=== PATIENT | female | born 1990 ===

== ENCOUNTER 2018-05-03 11:04 | Emergency (ER) | payer OTHER ==
[~2018-05-03] VITALS: Ht 162.6 cm; Wt 50.3 kg
[~2018-05-03 11:04] MED LIST: ANTIVERT25 MG
== END 2018-05-03 14:55 | disposition home or self-care (01) ==
LOC: ER 11:04
DX: O26.891 Other specified pregnancy related conditions, first trimester (principal); R10.32 Left lower quadrant pain; Z34.01 Encounter for supervision of normal first pregnancy, first trimester

== ENCOUNTER 2018-07-20 05:41 | Inpatient (IN) | payer OTHER ==
[~2018-07-20] VITALS: Ht 160 cm; Wt 126.0 kg
[2018-07-21] MEDS ORDERED: PRENATABS RX T1 EACH PO (11:25)
== END 2018-07-22 14:17 | disposition home or self-care (01) | DRG 833 ==
LOC: OBS/DEL 05:41 → LDR 07-21 09:25 → OB/GYN 07-21 13:33
PROC: 4A1HXCZ Monitoring of Products of Conception, Cardiac Rate, External Approach (ICD-10-PCS; principal; 2018-07-21)
DX: O26.892 Other specified pregnancy related conditions, second trimester (principal); R10.32 Left lower quadrant pain; Z34.02 Encounter for supervision of normal first pregnancy, second trimester

== ENCOUNTER 2018-09-12 11:12 | Outpatient (CLI) | payer OTHER ==
[~2018-09-12 11:12] MED LIST changes: +PRENATABS RX T1 EACH PO
== END 2018-09-13 14:29 | disposition home or self-care (01) ==
LOC: OBS/DEL 11:12
DX: O26.893 Other specified pregnancy related conditions, third trimester (principal); H92.03 Otalgia, bilateral; R07.89 Other chest pain; Z34.83 Encounter for supervision of other normal pregnancy, third trimester

== ENCOUNTER 2018-11-04 05:24 | Inpatient (IN) | payer OTHER ==
[~2018-11-04] VITALS: Ht 162.6 cm; Wt 64.9 kg
[2018-11-04] MEDS ORDERED: FOLIC ACID1 MG PO (09:35)
[2018-11-04] MEDS ORDERED: VALTREX1000 MG (09:37)
== END 2018-11-06 16:34 | disposition home or self-care (01) | DRG 807 ==
LOC: LDR 05:24 → OB/GYN 05:24
PROVIDERS: ADMIT Obstetrics & Gynecology Obstetrics
PROC: 10E0XZZ Delivery of Products of Conception, External Approach (ICD-10-PCS; principal; 2018-11-04)
PROC: 4A1HXCZ Monitoring of Products of Conception, Cardiac Rate, External Approach (ICD-10-PCS; 2018-11-04)
DX: O80 Encounter for full-term uncomplicated delivery (principal); Z37.0 Single live birth; Z3A.40 40 weeks gestation of pregnancy

== ENCOUNTER → 2020-07-15 | Outpatient (CLI) | payer OTHER ==
[~2020-07-15] MED LIST changes: +FOLIC ACID1 MG PO; +VALTREX1000 MG
== END | disposition home or self-care (01) ==
LOC: PRENATAL 15:30
PROVIDERS: ATTEND Obstetrics & Gynecology Maternal & Fetal Medicine
DX: O35.0XX1 Maternal care for (suspected) central nervous system malformation in fetus, fetus 1 (principal); O35.3XX1 Maternal care for (suspected) damage to fetus from viral disease in mother, fetus 1; O98.512 Other viral diseases complicating pregnancy, second trimester; Z36.89 Encounter for other specified antenatal screening; Z3A.20 20 weeks gestation of pregnancy

== ENCOUNTER 2020-11-23 16:15 | Inpatient (IN) | payer OTHER ==
[~2020-11-23] VITALS: Ht 162.6 cm; Wt 63.0 kg
[2020-11-23] MEDS ORDERED: SYNTHROID50 MCG PO (17:06)
== END 2020-11-26 15:28 | disposition home or self-care (01) | DRG 807 ==
LOC: LDR 16:15 → OB/GYN 11-24 13:35
PROVIDERS: ADMIT Obstetrics & Gynecology; ATTEND Obstetrics & Gynecology
PROC: 4A1HXFZ Monitoring of Products of Conception, Cardiac Rhythm, External Approach (ICD-10-PCS; 2020-11-23)
PROC: 10E0XZZ Delivery of Products of Conception, External Approach (ICD-10-PCS; principal; 2020-11-24)
PROC: 10907ZC Drainage of Amniotic Fluid, Therapeutic from Products of Conception, Via Natural or Artificial Opening (ICD-10-PCS; 2020-11-24)
DX: O76 Abnormality in fetal heart rate and rhythm complicating labor and delivery (principal); Z37.0 Single live birth; Z3A.38 38 weeks gestation of pregnancy; Z20.822 Contact with and (suspected) exposure to COVID-19

== ENCOUNTER → 2025-02-22 | Emergency (ER) | payer OTHER ==
[~2025-02-22] VITALS: Ht 162.6 cm; Wt 54.4 kg
[~2025-02-22] MED LIST changes: +KETOROLAC TROMETHAMINE 60 MG VIAL IM STA; +SYNTHROID50 MCG PO
[2025-02-22 14:02] LABS: BASO % 0.5 % (0.1-1.2); EOS # 0.03 (0.04-0.54); EOS % 0.5 % (0.7-7.0); HEMATOCRIT 35.6 % (34.1-44.9); HEMOGLOBIN 11.6 g/dL (11.2-15.7); LYMPH # 1.48 (1.18-3.74); LYMPH % 25.3 % (19.3-53.1); MONO # 0.34 (0.24-0.82); MONO % 5.8 % (4.7-12.5); NEUT # 3.95 (1.56-6.13); NEUT % 67.7 % (34.0-71.1); PLATELET COUNT 233 K/uL (163-369); RED BLOOD COUNT 3.87 M/uL (3.93-5.22); RED CELL DISTRIBUTION WIDTH 12.6 % (11.6-14.4)
== END | disposition home or self-care (01) ==
LOC: ER 11:16
PROVIDERS: General Practice
DX: G44.209 Tension-type headache, unspecified, not intractable (principal)